=== PATIENT | male | born 1975 | race Caucasian/White ===

== ENCOUNTER 2020-12-10 12:56 | Emergency (ER) | payer MEDICARE ==
[~2020-12-10 12:56] MED LIST: BACTRIM DS TAB1 EACH PO; BACTROBAN OINT22 GM EXT; ELIQUIS 5 MG TAB5 MG PO; IBUPROFEN600 MG PO; KLONOPIN TAB 00.5 MG PO; MEDROL DOSEPAK 24 MG PO; NEURONTIN800 MG PO; PROTONIX40 MG PO; SUBUTEX 8 MG TAB8 MG PO; TYLENOL 325MG325 MG PO; ZITHROMAX250 MG PO; ZOFRAN4 MG PO
[2020-12-10 13:40] LABS: HEMOGLOBIN 15.6 gm/dl (14.0-17.5); RED BLOOD COUNT 5.48 M/UL (4.20-5.50); WHITE BLOOD COUNT 9.2 K/UL (4.5-11.0)
[2020-12-10 14:05] LABS: BUN/CREATININE RATIO 17 (0-10)
[2020-12-10] MEDS ORDERED: CIPRO500 MG PO (16:40)
[2020-12-10] MEDS ORDERED: FLAGYL500 MG PO (16:40)
[2020-12-10] MEDS ORDERED: ZOFRAN4 MG PO (16:40)
== END 2020-12-10 17:21 | disposition home or self-care (01) ==
LOC: ER1 12:56
PROVIDERS: Physician Assistant
DX: K52.9 Noninfective gastroenteritis and colitis, unspecified (principal); H93.19 Tinnitus, unspecified ear; B19.20 Unspecified viral hepatitis C without hepatic coma; Z88.0 Allergy status to penicillin
CPT/HCPCS: 80053; 82150; 82550; 82553; 83690; 83874; 84484; 85025; 93005; 96374; 96375; 96376; 99284; J1885; J2405; Q9967

== ENCOUNTER 2020-12-21 14:42 | Emergency (ER) | payer MEDICARE ==
[~2020-12-21 14:42] MED LIST changes: +CIPRO500 MG PO; +FLAGYL500 MG PO
[2020-12-21] MEDS ORDERED: VALIUM2 MG PO (15:24)
== END 2020-12-21 17:18 | disposition home or self-care (01) ==
LOC: ER1 14:42
DX: H93.12 Tinnitus, left ear (principal); F17.210 Nicotine dependence, cigarettes, uncomplicated
CPT/HCPCS: 99283

== ENCOUNTER 2020-12-30 19:26 | Emergency (ER) | payer MEDICARE ==
[~2020-12-30 19:26] MED LIST changes: +VALIUM2 MG PO
[2020-12-30 20:41] LABS: HEMOGLOBIN 14.6 gm/dl (14.0-17.5); RED BLOOD COUNT 5.13 M/UL (4.20-5.50); WHITE BLOOD COUNT 5.2 K/UL (4.5-11.0)
[2020-12-30 21:00] LABS: BUN/CREATININE RATIO 15 (0-10)
== END 2020-12-30 23:06 | disposition home or self-care (01) ==
LOC: ER1 19:26
PROVIDERS: Physician Assistant
DX: F29 Unspecified psychosis not due to a substance or known physiological condition (principal); Z20.822 Contact with and (suspected) exposure to COVID-19; I10 Essential (primary) hypertension; Z88.0 Allergy status to penicillin; R94.5 Abnormal results of liver function studies
CPT/HCPCS: 70450; 71045; 80053; 84439; 84443; 85025; 99285; G0480; U0002

== ENCOUNTER 2021-01-11 05:53 | Emergency (ER) | payer MEDICARE ==
[2021-01-11 06:42] LABS: RED BLOOD COUNT 4.85 M/UL (4.20-5.50); WHITE BLOOD COUNT 7.2 K/UL (4.5-11.0)
[2021-01-11 07:09] LABS: BUN/CREATININE RATIO 15 (0-10)
[2021-01-11] MEDS ORDERED: BENTYL 10MG CAP10 MG PO (10:05)
[2021-01-11] MEDS ORDERED: ZOFRAN ODT 4 MG4 MG PO (10:05)
[2021-01-11] MEDS ORDERED: PROTONIX 40 MG40 M1 PO (10:05)
== END 2021-01-11 10:12 | disposition home or self-care (01) ==
LOC: ER1 05:53
PROVIDERS: Emergency Medicine
DX: K29.70 Gastritis, unspecified, without bleeding (principal); Z86.19 Personal history of other infectious and parasitic diseases; Z88.0 Allergy status to penicillin
CPT/HCPCS: 80053; 80307; 83690; 85025; 93005; 96374; 96375; 99284; J2405; Q9967

== ENCOUNTER 2021-02-26 12:19 | Emergency (ER) | payer MEDICARE ==
[~2021-02-26 12:19] MED LIST changes: +BENTYL 10MG CAP10 MG PO; +PROTONIX 40 MG40 M1 PO; +ZOFRAN ODT 4 MG4 MG PO
[2021-02-26] MEDS ORDERED: NAPROSYN500 MG PO (14:44)
== END 2021-02-26 18:30 | disposition home or self-care (01) ==
LOC: ER1 12:19
DX: S90.32XA Contusion of left foot, initial encounter (principal); Z88.0 Allergy status to penicillin; Z86.19 Personal history of other infectious and parasitic diseases; W22.8XXA Striking against or struck by other objects, initial encounter; Y92.512 Supermarket, store or market as the place of occurrence of the external cause
CPT/HCPCS: 73630; 90715; 99283

== ENCOUNTER 2021-03-20 23:00 | Emergency (ER) | payer MEDICARE ==
[~2021-03-20 23:00] MED LIST changes: +NAPROSYN500 MG PO
[2021-03-20 23:47] LABS: HEMOGLOBIN 14.6 gm/dl (14.0-17.5); RED BLOOD COUNT 5.11 M/UL (4.20-5.50); WHITE BLOOD COUNT 7.4 K/UL (4.5-11.0)
[2021-03-20 23:59] LABS: BUN/CREATININE RATIO 15 (0-10)
== END 2021-03-21 02:05 | disposition home or self-care (01) ==
LOC: ER1 23:00
PROVIDERS: Physician Assistant
DX: H93.19 Tinnitus, unspecified ear (principal); Z88.0 Allergy status to penicillin; Z20.822 Contact with and (suspected) exposure to COVID-19
CPT/HCPCS: 71045; 80053; 83735; 84439; 84443; 85025; 93005; 99284; U0002

== ENCOUNTER 2021-03-28 07:45 | Emergency (ER) | payer MEDICARE | END 2021-03-28 11:56 | disposition left against medical advice (07) | LOC: ER1 07:45 | DX: Z53.21 Procedure and treatment not carried out due to patient leaving prior to being seen by health care provider (principal) ==

== ENCOUNTER 2021-04-01 16:42 | Emergency (ER) | payer OTHER ==
[2021-04-01 18:18] LABS: HEMOGLOBIN 14.6 gm/dl (14.0-17.5); RED BLOOD COUNT 5.09 M/UL (4.20-5.50); WHITE BLOOD COUNT 8.3 K/UL (4.5-11.0)
[2021-04-01 18:39] LABS: BUN/CREATININE RATIO 17 (0-10)
[2021-04-01] MEDS ORDERED: K-DUR TAB 20 M20 MEQ PO (19:35)
[2021-04-01] MEDS ORDERED: ZOFRAN4 MG PO (19:35)
[2021-04-01] MEDS ORDERED: PROTONIX 40 MG40 M1 PO (19:35)
[2021-04-03 20:11] LABS: CHLAMYDIA TRACHOMATIS, NAA Negative (Negative); NEISSERIA GONORRHOEAE, NAA Negative (Negative)
== END 2021-04-01 19:54 | disposition home or self-care (01) ==
LOC: ER1 16:42
PROVIDERS: Physician Assistant
DX: E87.6 Hypokalemia (principal); R10.13 Epigastric pain; R30.0 Dysuria; Z88.0 Allergy status to penicillin
CPT/HCPCS: 80053; 80307; 81001; 83690; 85025; 96372; 99284; J0696

== ENCOUNTER 2021-04-14 12:35 | Emergency (ER) | payer OTHER ==
[~2021-04-14 12:35] MED LIST changes: +K-DUR TAB 20 M20 MEQ PO
[2021-04-14 13:39] LABS: HEMOGLOBIN 14.1 gm/dl (14.0-17.5); RED BLOOD COUNT 5.2 M/UL (4.20-5.50); WHITE BLOOD COUNT 3.1 K/UL (4.5-11.0)
[2021-04-14 13:59] LABS: BUN/CREATININE RATIO 11 (0-10)
[2021-04-14] MEDS ORDERED: ZOFRAN4 MG PO (14:08)
== END 2021-04-14 14:20 | disposition home or self-care (01) ==
LOC: ER1 12:35
PROVIDERS: Physician Assistant Medical
DX: R11.2 Nausea with vomiting, unspecified (principal); R51.9 Headache, unspecified; Z88.0 Allergy status to penicillin; Z79.899 Other long term (current) drug therapy
CPT/HCPCS: 80053; 81001; 83690; 85025; 99284

== ENCOUNTER 2021-06-11 20:47 | Emergency (ER) | payer OTHER ==
[2021-06-11 22:08] LABS: HEMOGLOBIN 14.2 gm/dl (14.0-17.5); RED BLOOD COUNT 4.91 M/UL (4.20-5.50); WHITE BLOOD COUNT 8.3 K/UL (4.5-11.0)
[2021-06-11 22:43] LABS: BUN/CREATININE RATIO 14 (0-10)
[2021-06-12] MEDS ORDERED: PANTOPRAZOLE SO20 MG PO (00:20)
[2021-06-12] MEDS ORDERED: ZOFRAN ODT 4 MG4 MG PO (00:20)
== END 2021-06-12 00:40 | disposition home or self-care (01) ==
LOC: ER1 20:47
PROVIDERS: Family Medicine; Nurse Practitioner
DX: R10.10 Upper abdominal pain, unspecified (principal); R11.2 Nausea with vomiting, unspecified; F15.10 Other stimulant abuse, uncomplicated; F13.10 Sedative, hypnotic or anxiolytic abuse, uncomplicated; F12.10 Cannabis abuse, uncomplicated; Z88.0 Allergy status to penicillin
CPT/HCPCS: 80053; 80307; 81001; 83690; 85025; 96374; 99284; J2405